=== PATIENT | female | born 1985 | race Caucasian/White ===

== ENCOUNTER 2024-09-19 20:22 | Emergency (ER) | payer MEDICAID, SELFPAY ==
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
[2024-09-19 20:17] VITALS: BP 141/102; PULSE 91; RESP 16; TEMP 37; O2SAT 100
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
--- NOTE | 2024-09-19 20:38 | PC.NURSE ---
Pt refuses to change into gown or wear c-collar.
[2024-09-19 20:42] LABS: Basophils Percent Auto 0.4 % (0.2-1.2); Eosinophils Percent Auto 0.2 % (0-4.4); Hematocrit 36.7 % (37.0-47.0); Hemoglobin 12.1 g/dL (12.0-15.0); Immature Granulocyte Absolute 0.02 K/mm3 (0.00-0.031); Immature Granulocyte Percent A 0.4 % (0-0.5); Lymphocytes Absolute Auto 1.73 K/mm3 (0.9-3.2); Lymphocytes Percent Auto 31.9 % (18.3-44.2); Mean Corpuscular Hemoglobin 30.7 pg (26-34); Mean Corpuscular Volume 93.1 fl (80-100); Monocytes Absolute Auto 0.5 K/mm3 (0.1-0.6); Monocytes Percent Auto 8.5 % (2.6-8.5); Neutrophils Absolute Auto 3.2 K/mm3 (1.3-6.7); Neutrophils Percent Auto 58.6 % (45.5-73.1); Platelet Count Result 286 k/mm3 (150-375); Red Blood Count 3.94 M/mm3 (4.2-5.4); Red Cell Distribution Width 13.2 % (11.5-14.5); White Blood Count 5.4 K/mm3 (4.5-10.0)
--- NOTE | 2024-09-19 20:44 | ECG_ITS ---
Test Date: 2024-09-19 20:29:30 Measurements Intervals [place] Rate: 83 P: 34 SC: 159 QRS: -11 QRSD: 96 T: 38 QT: 380 QTc: 449 Interpretive Statements SINUS RHYTHM DELAYED PRECORDIAL R/S TRANSITION MINIMAL Q WAVES- HIGH LATERAL LEADS BASELINE ARTIFACT- V4-V5 BORDERLINE ECG No previous ECG available for comparison Electronically Signed On 09-19-2024 20:55:42 CDT by Weston Pierce D.O.
[2024-09-19 20:53] LABS: Alanine Aminotransferase 33 U/L (6-35); Albumin Level 4.1 g/dL (3.5-5.1); Alkaline Phosphatase 37 U/L (38-126); Anion Gap 9 mmol/L (4-12); Aspartate Amino Transferase 27 U/L (14-36); Bilirubin,Total 0.4 mg/dL (0.2-1.3); Blood Urea Nitrogen 9 mg/dL (7-17); Calcium 8.7 mg/dL (8.4-10.2); Carbon Dioxide 19 mmol/L (22-30); Chloride 110 mmol/L (98-107); Estimated CRCL calculation 87 ml/min; Estimated Glomerular Filt Rate > 60; Glucose 92 mg/dL (65-110); Potassium 3.7 mmol/L (3.4-5.0); Sodium 138 mmol/L (137-145); Total Protein 6.9 g/dL (6.3-8.2)
[2024-09-19 21:11] LABS: INR 1.1; Prothrombin Time 14.2 Seconds (11.1-14.7)
[2024-09-19 21:12] LABS: Partial Thromboplastin Time 28.2 Seconds (22.3-36.8)
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
== END 2024-09-19 21:35 | disposition left against medical advice (07) ==
LOC: ANHED 09-20 00:26
PROVIDERS: Emergency Provider Emergency Medicine
DX: S00.81XA Abrasion of other part of head, initial encounter (principal); S60.512A Abrasion of left hand, initial encounter; S60.511A Abrasion of right hand, initial encounter; S50.311A Abrasion of right elbow, initial encounter; S90.412A Abrasion, left great toe, initial encounter; S40.812A Abrasion of left upper arm, initial encounter; S40.811A Abrasion of right upper arm, initial encounter; R94.31 Abnormal electrocardiogram [ECG] [EKG]; V18.4XXA Pedal cycle driver injured in noncollision transport accident in traffic accident, initial encounter; Y93.55 Activity, bike riding
CPT/HCPCS: 36415; 73110; 73630; 80053; 85025; 85610; 85730; 93005; 99284

== ENCOUNTER 2024-09-20 11:45 | Emergency (ER) | payer MEDICAID, SELFPAY ==
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
[2024-09-20 11:58] VITALS: BP 112/75; PULSE 78; RESP 20; TEMP 36.6; O2SAT 97
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
[2024-09-20] MEDS: NAPROXEN 500 MG TABLET PO (12:43)
[2024-09-20] MEDS: HYDROcodone/acetaminophen (*CRX) 5-325 MG TABLET 1 TAB PO (14:14)
[2024-09-20 14:23] VITALS: BP 121/84; PULSE 70; RESP 18; O2SAT 99
== END 2024-09-20 14:26 | disposition home or self-care (01) ==
PROVIDERS: Emergency Provider Nurse Practitioner Family
DX: S00.81XA Abrasion of other part of head, initial encounter (principal); S90.412A Abrasion, left great toe, initial encounter; S69.92XA Unspecified injury of left wrist, hand and finger(s), initial encounter; V18.4XXA Pedal cycle driver injured in noncollision transport accident in traffic accident, initial encounter; Y93.55 Activity, bike riding
CPT/HCPCS: 70450; 72125; 99284; A9270